=== PATIENT | female | born 1970 | race Caucasian/White ===

== ENCOUNTER 2018-01-24 15:42 | Inpatient (IN) | payer OTHER ==
[~2018-01-24] VITALS: Ht 157.5 cm; Wt 131.5 kg
[~2018-01-24 15:42] MED LIST: BELPTAB PO; CEPH500 PO; CITA20; CYCL10 PO; FENO48 PO; HYDACE5 PO; METF500C PO; OMEP20ER PO; PANT40 PO; PROM25 PO; [UNRECOGNIZED DRUG - REMARK] PO
[2018-01-24 17:01] LABS: BASOPHILS ABSOLUTE AUTO 0.04 K/mm3 (0.00-0.23); BASOPHILS PERCENT AUTO 0 % (0-2); EOSINOPHILS PERCENT AUTO 0 % (0-6); Hematocrit 43.7 % (33.0-51.0); Hemoglobin 14.8 g/dL (11.5-16.0); IMMATURE GRAN ABSOLUTE AUTO 0.12 K/mm3 (0.00-0.10); IMMATURE GRAN PERCENT AUTO 1 % (0-1); LYMPHOCYTES ABSOLUTE AUTO 1.42 K/mm3 (0.84-5.20); LYMPHOCYTES PERCENT AUTO 7 % (21-46); MONOCYTES ABSOLUTE AUTO 1.26 K/mm3 (0.16-1.47); MONOCYTES PERCENT AUTO 6 % (4-13); Mean Corpuscular HGB 29.8 pg (26.0-34.0); Mean Corpuscular HGB Conc 33.9 g/dL (31.5-36.5); Mean Corpuscular Volume 88 fL (80-100); Mean Platelet Volume 11.2 fL (9.1-12.4); NEUTROPHILS ABSOLUTE AUTO 17.14 K/mm3 (1.96-9.15); NEUTROPHILS PERCENT AUTO 86 % (41-73); Platelet Count 238 K/mm3 (150-400); RDW Standard Deviation 41.8 fL (35.1-46.3); Red Blood Cell Count 4.96 M/mm3 (3.80-5.20); White Blood Cell Count 19.98 K/mm3 (4.00-11.30)
[2018-01-24 17:24] LABS: Alanine Aminotransfer (ALT/SGP 33 U/L (12-78); Albumin, Blood 3.4 g/dL (3.4-5.0); Albumin/Globulin Ratio 0.8 (0.8-1.8); Alk Phos 80 U/L (50-136); Anion Gap 10 mmol/L (6-16); Aspartate Aminotrans (AST/SGOT 23 U/L (12-37); Bilirubin, Total 1.3 mg/dL (0.1-1.0); Blood Urea Nitrogen 9 mg/dL (8-24); Bun/Creatinine Ratio 15.3 (12.0-20.0); CO2, Blood 23 mmol/L (21-32); Calcium, Blood 9.3 mg/dL (8.5-10.1); Chloride, Blood 101 mmol/L (98-108); Creatinine, Blood 0.59 mg/dL (0.40-1.00); Globulin, Blood 4.4 g/dL (2.2-4.0); Glomerular Filtration Rate >60 (60-); Glucose, Blood 149 mg/dL (70-99); Potassium, Blood 3.6 mmol/L (3.5-5.5); Sodium, Blood 134 mmol/L (136-145); Total Protein, Blood 7.8 g/dL (6.4-8.2)
[2018-01-24 20:13] LABS: Influenza A Negative (NEGATIVE); Influenza B Negative (NEGATIVE)
[2018-01-24] MEDS ORDERED: PIOG30 PO (20:55)
[2018-01-24] MEDS ORDERED: GLIP2.5ER PO (20:55)
[2018-01-24] MEDS ORDERED: Advair Hfa 230-12 GM (20:56)
[2018-01-24] MEDS ORDERED: Novolog100 UNIT/1 SC (20:57)
[2018-01-24] MEDS ORDERED: INSULANPEN (20:58)
[2018-01-24] MEDS ORDERED: PIOG15 PO (23:27)
[2018-01-24] MEDS ORDERED: INSDET100 SC (23:28)
[2018-01-24] MEDS ORDERED: [UNRECOGNIZED DRUG - OTHER] INH (23:37)
[2018-01-24] MEDS ORDERED: TURMERIC500 M2 PO (23:38)
[2018-01-24] MEDS ORDERED: ALIVE WOMEN'S1 EAC1 PO (23:38)
[2018-01-24] MEDS ORDERED: NAPR220 PO (23:39)
[2018-01-25 04:38] LABS: BASOPHILS ABSOLUTE AUTO 0.06 K/mm3 (0.00-0.23); BASOPHILS PERCENT AUTO 0 % (0-2); EOSINOPHILS ABSOLUTE AUTO 0.01 K/mm3 (0.00-0.68); EOSINOPHILS PERCENT AUTO 0 % (0-6); Hematocrit 42.4 % (33.0-51.0); IMMATURE GRAN ABSOLUTE AUTO 0.11 K/mm3 (0.00-0.10); IMMATURE GRAN PERCENT AUTO 1 % (0-1); LYMPHOCYTES ABSOLUTE AUTO 2.55 K/mm3 (0.84-5.20); LYMPHOCYTES PERCENT AUTO 14 % (21-46); MONOCYTES ABSOLUTE AUTO 0.96 K/mm3 (0.16-1.47); MONOCYTES PERCENT AUTO 5 % (4-13); Mean Platelet Volume 11.3 fL (9.1-12.4); NEUTROPHILS PERCENT AUTO 80 % (41-73); Platelet Count 205 K/mm3 (150-400); RDW Coefficient Variation 13.2 % (11.7-14.2); RDW Standard Deviation 43.1 fL (35.1-46.3); Red Blood Cell Count 4.66 M/mm3 (3.80-5.20); White Blood Cell Count 18.29 K/mm3 (4.00-11.30)
[2018-01-25 04:44] LABS: Mean Corpuscular Volume 91 fL (80-100)
[2018-01-25 05:02] LABS: Alanine Aminotransfer (ALT/SGP 28 U/L (12-78); Albumin, Blood 2.9 g/dL (3.4-5.0); Albumin/Globulin Ratio 0.7 (0.8-1.8); Alk Phos 75 U/L (50-136); Anion Gap 8 mmol/L (6-16); Aspartate Aminotrans (AST/SGOT 11 U/L (12-37); Bilirubin, Total 0.9 mg/dL (0.1-1.0); Blood Urea Nitrogen 11 mg/dL (8-24); Bun/Creatinine Ratio 16.6 (12.0-20.0); CO2, Blood 26 mmol/L (21-32); Calcium, Blood 8.7 mg/dL (8.5-10.1); Chloride, Blood 104 mmol/L (98-108); Creatinine, Blood 0.66 mg/dL (0.40-1.00); Globulin, Blood 4.3 g/dL (2.2-4.0); Glomerular Filtration Rate >60 (60-); Glucose, Blood 118 mg/dL (70-99); Potassium, Blood 3.2 mmol/L (3.5-5.5); Sodium, Blood 138 mmol/L (136-145); Total Protein, Blood 7.2 g/dL (6.4-8.2)
[2018-01-25 05:36] LABS: Source, Urine Clean Catch
[2018-01-25 05:38] LABS: Blood, Urine 1+ (Neg); Glucose Qualitative, Urine Neg (Neg); Ketones, Urine 2+ (Neg); Leukocyte Esterase, Urine 1+ (Neg); Nitrite, Urine Neg (Neg); Protein, Urine 2+ (Neg); Urobilinogen, Urine 2+ (Normal)
[2018-01-25 05:54] LABS: Appearance, Urine Hazy (Clear); Bilirubin, Urine 1+ (Neg); Color, Urine Amber (P-Yellow)
[2018-01-25 06:03] LABS: White Blood Cells, Urine 0-2 /hpf (0-5)
[2018-01-25 06:05] LABS: Bacteria Many /hpf; Mucus Light (0-Heavy); Squamous Epithelial Cells Mod /hpf (Few)
[2018-01-25 06:09] LABS: Transitional Epithelial Cells Rare /hpf (0-Rare)
[2018-01-25 06:18] LABS: Renal Epithelial Rare /hpf (0-Rare)
[2018-01-26 05:13] LABS: BASOPHILS ABSOLUTE AUTO 0.05 K/mm3 (0.00-0.23); BASOPHILS PERCENT AUTO 1 % (0-2); EOSINOPHILS ABSOLUTE AUTO 0.18 K/mm3 (0.00-0.68); EOSINOPHILS PERCENT AUTO 2 % (0-6); Hematocrit 41.3 % (33.0-51.0); Hemoglobin 13.5 g/dL (11.5-16.0); IMMATURE GRAN ABSOLUTE AUTO 0.04 K/mm3 (0.00-0.10); IMMATURE GRAN PERCENT AUTO 0 % (0-1); LYMPHOCYTES ABSOLUTE AUTO 2.74 K/mm3 (0.84-5.20); LYMPHOCYTES PERCENT AUTO 30 % (21-46); MONOCYTES ABSOLUTE AUTO 0.53 K/mm3 (0.16-1.47); MONOCYTES PERCENT AUTO 6 % (4-13); Mean Corpuscular HGB 29.9 pg (26.0-34.0); Mean Corpuscular HGB Conc 32.7 g/dL (31.5-36.5); Mean Corpuscular Volume 92 fL (80-100); Mean Platelet Volume 11.3 fL (9.1-12.4); NEUTROPHILS ABSOLUTE AUTO 5.65 K/mm3 (1.96-9.15); NEUTROPHILS PERCENT AUTO 62 % (41-73); Platelet Count 216 K/mm3 (150-400); RDW Coefficient Variation 13.2 % (11.7-14.2); RDW Standard Deviation 44.2 fL (35.1-46.3); Red Blood Cell Count 4.51 M/mm3 (3.80-5.20); White Blood Cell Count 9.19 K/mm3 (4.00-11.30)
[2018-01-26 05:28] LABS: Anion Gap 7 mmol/L (6-16); Blood Urea Nitrogen 12 mg/dL (8-24); Bun/Creatinine Ratio 18.8 (12.0-20.0); CO2, Blood 27 mmol/L (21-32); Calcium, Blood 8.2 mg/dL (8.5-10.1); Chloride, Blood 107 mmol/L (98-108); Creatinine, Blood 0.64 mg/dL (0.40-1.00); Glomerular Filtration Rate >60 (60-); Glucose, Blood 113 mg/dL (70-99); Magnesium, Blood 1.7 mg/dL (1.6-2.4); Potassium, Blood 3.5 mmol/L (3.5-5.5); Sodium, Blood 141 mmol/L (136-145)
[2018-01-26] MEDS ORDERED: ROBITUSSIN NIG237 ML PO (09:39)
[2018-01-26] MEDS ORDERED: ACET325 PO (09:41)
[2018-01-26] MEDS ORDERED: KETO10 PO (09:42)
[2018-01-26] MEDS ORDERED: OMEPRAZOLE MAGN20 MG PO (09:43)
[2018-01-26] MEDS ORDERED: LEVO750 PO (09:43)
== END 2018-01-26 10:59 | disposition home or self-care (01) | DRG 871 ==
LOC: ER 15:42 → MEDS 19:51 → ENPENDDIS 01-26 09:00 → MEDS 01-26 10:59
PROVIDERS: Internal Medicine; Physician Assistant
DX: A41.9 Sepsis, unspecified organism (principal); J18.9 Pneumonia, unspecified organism; Z68.43 Body mass index [BMI] 50.0-59.9, adult; E66.01 Morbid (severe) obesity due to excess calories; J45.909 Unspecified asthma, uncomplicated; E11.9 Type 2 diabetes mellitus without complications; E87.6 Hypokalemia; E86.0 Dehydration; Z91.048 Other nonmedicinal substance allergy status; Z79.84 Long term (current) use of oral hypoglycemic drugs; Z79.899 Other long term (current) drug therapy
CPT/HCPCS: 36415; 71046; 80048; 80053; 81001; 82947; 83605; 83735; 85025; 87040; 87086; 87804; 93005; 93010; 94640; 94760; 96361; 96365; 96368; 96375; 99285; C9113; J0456; J0696; J1650; J1815; J1885; J3010; J7030; J7050

== ENCOUNTER → 2018-05-04 | Outpatient (CLI) | payer OTHER ==
[~2018-05-04] MED LIST changes: +ACET325 PO; +ALIVE WOMEN'S1 EAC1 PO; +Advair Hfa 230-12 GM; +GLIP2.5ER PO; +INSDET100 SC; +INSULANPEN; +KETO10 PO; +LEVO750 PO; +NAPR220 PO; +Novolog100 UNIT/1 SC; +OMEPRAZOLE MAGN20 MG PO; +PIOG15 PO; +PIOG30 PO; +ROBITUSSIN NIG237 ML PO; +TURMERIC500 M2 PO; +[UNRECOGNIZED DRUG - OTHER] INH
[2018-05-04 19:56] LABS: Alanine Aminotransfer (ALT/SGP 41 U/L (12-78); Albumin, Blood 3.7 g/dL (3.4-5.0); Alk Phos 84 U/L (50-136); Anion Gap 6 mmol/L (6-16); Aspartate Aminotrans (AST/SGOT 19 U/L (12-37); Bilirubin, Total 0.2 mg/dL (0.1-1.0); Blood Urea Nitrogen 16 mg/dL (8-24); Bun/Creatinine Ratio 21.4 (12.0-20.0); CHOL/HDL RATIO 5.6; CO2, Blood 28 mmol/L (21-32); Calcium, Blood 9.2 mg/dL (8.5-10.1); Chloride, Blood 104 mmol/L (98-108); Cholesterol 213 mg/dL (50-200); Creatinine, Blood 0.75 mg/dL (0.40-1.00); Globulin, Blood 3.7 g/dL (2.2-4.0); Glomerular Filtration Rate >60 (60-); Glucose, Blood 229 mg/dL (70-99); HDL Cholesterol 38 mg/dL (>39); LDL/HDL RATIO 2.8; Low Density Lipoprotein Chol 107 mg/dL (0-110); Potassium, Blood 4.2 mmol/L (3.5-5.5); Sodium, Blood 138 mmol/L (136-145); Total Protein, Blood 7.4 g/dL (6.4-8.2); Triglycerides 338 mg/dL (30-160); Very Low Density Lipoprot Chol 67 mg/dL (6-32)
== END | disposition home or self-care (01) ==
LOC: LAB SHORT 17:10
DX: E11.9 Type 2 diabetes mellitus without complications (principal)
CPT/HCPCS: 80053; 80061; 83036

== ENCOUNTER 2019-05-31 12:32 | Emergency (ER) | payer OTHER ==
[~2019-05-31] VITALS: Ht 160 cm; Wt 131.5 kg
[2019-05-31] MEDS ORDERED: FLUO10 PO (12:53)
[2019-05-31] MEDS ORDERED: Acetaminophen-1 EAC1 PO (14:19)
[2019-05-31] MEDS ORDERED: IBUP600 PO (14:19)
== END 2019-05-31 14:58 | disposition home or self-care (01) ==
LOC: ER 12:32
DX: S50.12XA Contusion of left forearm, initial encounter (principal); S70.01XA Contusion of right hip, initial encounter; S60.021A Contusion of right index finger without damage to nail, initial encounter; W18.30XA Fall on same level, unspecified, initial encounter; Z91.048 Other nonmedicinal substance allergy status; Z79.899 Other long term (current) drug therapy; Z79.4 Long term (current) use of insulin; E11.9 Type 2 diabetes mellitus without complications; J45.909 Unspecified asthma, uncomplicated
CPT/HCPCS: 73090; 73140; 73502; 99283-25

== ENCOUNTER 2020-11-12 19:47 | Emergency (ER) | payer OTHER ==
[~2020-11-12] VITALS: Ht 162.6 cm; Wt 108.9 kg
[~2020-11-12 19:47] MED LIST changes: +Acetaminophen-1 EAC1 PO; +FLUO10 PO; +IBUP600 PO
[2020-11-12] MEDS ORDERED: IBUP800 PO (21:45)
== END 2020-11-12 21:48 | disposition home or self-care (01) ==
LOC: ER 19:47
DX: S80.02XA Contusion of left knee, initial encounter (principal); S80.01XA Contusion of right knee, initial encounter; S00.511A Abrasion of lip, initial encounter; E11.9 Type 2 diabetes mellitus without complications; Z79.4 Long term (current) use of insulin; Z91.09 Other allergy status, other than to drugs and biological substances; Z91.012 Allergy to eggs; W10.1XXA Fall (on)(from) sidewalk curb, initial encounter
CPT/HCPCS: 73562-LT; 99283-25; A9270

== ENCOUNTER 2021-11-18 08:26 | Inpatient (IN) | payer OTHER ==
[~2021-11-18] VITALS: Ht 162.6 cm; Wt 117.9 kg
[~2021-11-18 08:26] MED LIST changes: +FAMO20 PO; +GLIP5 PO; +IBUP800 PO; +MELO7.5 PO
[2021-11-18 09:17] LABS: Source, Urine Clean Catch
[2021-11-18 09:25] LABS: Appearance, Urine Hazy (Clear); Bilirubin, Urine Neg (Neg); Blood, Urine 3+ (Neg); Color, Urine Yellow (P-Yellow); Glucose Qualitative, Urine 4+ (Neg); Ketones, Urine 3+ (Neg); Leukocyte Esterase, Urine 2+ (Neg); Nitrite, Urine Neg (Neg); Protein, Urine 2+ (Neg); Specific Gravity, Urine 1.015 (1.003-1.022); Urobilinogen, Urine NORM (Normal)
[2021-11-18 09:40] LABS: BASOPHILS ABSOLUTE AUTO 0.03 K/mm3 (0.00-0.23); BASOPHILS PERCENT AUTO 0 % (0-2); EOSINOPHILS PERCENT AUTO 0 % (0-6); Hematocrit 41.6 % (33.0-51.0); Hemoglobin 13.9 g/dL (11.5-16.0); IMMATURE GRAN ABSOLUTE AUTO 0.12 K/mm3 (0.00-0.10); IMMATURE GRAN PERCENT AUTO 1 % (0-1); LYMPHOCYTES ABSOLUTE AUTO 0.74 K/mm3 (0.84-5.20); LYMPHOCYTES PERCENT AUTO 6 % (21-46); MONOCYTES ABSOLUTE AUTO 0.85 K/mm3 (0.16-1.47); MONOCYTES PERCENT AUTO 7 % (4-13); Mean Corpuscular HGB 28.7 pg (26.0-34.0); Mean Corpuscular HGB Conc 33.4 g/dL (31.5-36.5); Mean Corpuscular Volume 86 fL (80-100); Mean Platelet Volume 10.8 fL (9.1-12.4); NEUTROPHILS ABSOLUTE AUTO 10.31 K/mm3 (1.96-9.15); NEUTROPHILS PERCENT AUTO 86 % (41-73); Platelet Count 208 K/mm3 (150-400); RDW Coefficient Variation 12.3 % (11.7-14.2); RDW Standard Deviation 38.9 fL (35.1-46.3); Red Blood Cell Count 4.84 M/mm3 (3.80-5.20); White Blood Cell Count 12.05 K/mm3 (4.00-11.30)
[2021-11-18 09:49] LABS: White Blood Cells, Urine TNTC /hpf (0-5)
[2021-11-18 09:50] LABS: Alanine Aminotransfer (ALT/SGP 29 U/L (12-78); Albumin, Blood 2.6 g/dL (3.4-5.0); Albumin/Globulin Ratio 0.5 (0.8-1.8); Alk Phos 104 U/L (50-136); Anion Gap 13 mmol/L (6-16); Aspartate Aminotrans (AST/SGOT 23 U/L (12-37); Bilirubin, Total 0.4 mg/dL (0.1-1.0); Blood Urea Nitrogen 24 mg/dL (8-24); Bun/Creatinine Ratio 29.7 (12.0-20.0); CO2, Blood 23 mmol/L (21-32); Calcium, Blood 9.2 mg/dL (8.5-10.1); Chloride, Blood 88 mmol/L (98-108); Creatinine, Blood 0.81 mg/dL (0.40-1.00); Glomerular Filtration Rate >60 (60-); Glucose, Blood 530 mg/dL (70-99); Potassium, Blood 3.9 mmol/L (3.5-5.5); Sodium, Blood 124 mmol/L (136-145); Total Protein, Blood 7.6 g/dL (6.4-8.2)
[2021-11-18 09:50] LABS: Bacteria Mod /hpf; Squamous Epithelial Cells Few /hpf (Few)
[2021-11-18 13:39] LABS: U Amphetamine Screen Not Detected; U Barbituate Screen Not Detected; U Benzodiazapine Screen Not Detected; U Buprenorphine Screen Not Detected; U Cannabinoids Screen DETECTED; U Cocaine Screen Not Detected; U Methadone Screen Not Detected; U Methamphetamine Screen Not Detected; U Opiates Screen DETECTED; U Oxycodone Screen Not Detected; U Phencyclidine Screen Not Detected; U Propoxyphene Screen Not Detected
--- NOTE | 2021-11-18 18:20 | NUR ---
PATIENT ARRIVED TO THE FLOOR TODAY FROM THE ER. PATIENT THEN TAKEN DOWN FOR CT SCAN. PATIENT HAS COMPLIANED OF ABD PAIN REQUIRING PAIN MED PER ORDERS. SEE EMAR. PATIENT REMOVED HER IV AFTER A NEW ONE WAS STARTED. IV ANTIBIOTICS CONTINUE. IVF CONTINUE. PATIENT UP AD KEVON TO THE BATHROOM. PATIENT REMAINS NPO WITH A FEW ICE CHIPS FOR COMFORT. NO SIGNS OR SYMPTOMS ACUTE DISTRESS NOTED. CALL LIGHT AND WATER IN EASY REACH. ABLE TO MAKE NEEDS AND WANTS KNOWN. WILL MONITOR.
--- NOTE | 2021-11-19 04:03 | NUR ---
SHIFT SUMMARY: PT A&O X4. FEBRILE IN BEGINNING OF SHIFT WITH TMAX OF 101. HR TACHY DURING THIS TIME. PT MEDICATED WITH TYLENOL PER EMAR. PT ALSO MEDICATED WITH 50MCG OF FENTANYL TWICE THIS SHIFT FOR C/O ABD PAIN. PT DENIES URINARY SYMPTOMS THIS MORNING AND REPORTS FEELING MUCH BETTER. 1500CC OF YELLOW CLOUDY URINE OUT. IVF+ABX INFUSING PER EMAR. SPOKE WITH DR ESCOBAR WHO REPORTS PT WILL BE HAVING HER PROCEDURE DONE OUTPATIENT. PT NOW ON ADA DIET AND TOLERATING WELL. DENIES N/V.
[2021-11-19 04:17] LABS: BASOPHILS ABSOLUTE AUTO 0.02 K/mm3 (0.00-0.23); BASOPHILS PERCENT AUTO 0 % (0-2); EOSINOPHILS PERCENT AUTO 0 % (0-6); IMMATURE GRAN ABSOLUTE AUTO 0.06 K/mm3 (0.00-0.10); IMMATURE GRAN PERCENT AUTO 1 % (0-1); LYMPHOCYTES ABSOLUTE AUTO 0.81 K/mm3 (0.84-5.20); LYMPHOCYTES PERCENT AUTO 10 % (21-46); MONOCYTES ABSOLUTE AUTO 0.85 K/mm3 (0.16-1.47); MONOCYTES PERCENT AUTO 10 % (4-13); Mean Corpuscular HGB 29.4 pg (26.0-34.0); Mean Corpuscular HGB Conc 34.2 g/dL (31.5-36.5); Mean Corpuscular Volume 86 fL (80-100); NEUTROPHILS ABSOLUTE AUTO 6.59 K/mm3 (1.96-9.15); NEUTROPHILS PERCENT AUTO 79 % (41-73); Platelet Count 173 K/mm3 (150-400); RDW Coefficient Variation 12.4 % (11.7-14.2); RDW Standard Deviation 39.7 fL (35.1-46.3); Red Blood Cell Count 4.42 M/mm3 (3.80-5.20); White Blood Cell Count 8.33 K/mm3 (4.00-11.30)
[2021-11-19 04:30] LABS: Prothrombin Time Results 10.5 Sec (9.7-11.5)
[2021-11-19 04:45] LABS: Alanine Aminotransfer (ALT/SGP 32 U/L (12-78); Albumin, Blood 2.2 g/dL (3.4-5.0); Albumin/Globulin Ratio 0.5 (0.8-1.8); Alk Phos 81 U/L (50-136); Anion Gap 9 mmol/L (6-16); Aspartate Aminotrans (AST/SGOT 26 U/L (12-37); Bilirubin, Total 0.4 mg/dL (0.1-1.0); Blood Urea Nitrogen 20 mg/dL (8-24); Bun/Creatinine Ratio 29.9 (12.0-20.0); CO2, Blood 25 mmol/L (21-32); Calcium, Blood 8.7 mg/dL (8.5-10.1); Chloride, Blood 96 mmol/L (98-108); Creatinine, Blood 0.67 mg/dL (0.40-1.00); Globulin, Blood 4.6 g/dL (2.2-4.0); Glomerular Filtration Rate >60 (60-); Glucose, Blood 297 mg/dL (70-99); Magnesium, Blood 1.7 mg/dL (1.6-2.4); Potassium, Blood 3.5 mmol/L (3.5-5.5); Sodium, Blood 130 mmol/L (136-145); Total Protein, Blood 6.8 g/dL (6.4-8.2)
--- NOTE | 2021-11-20 03:45 | NUR ---
PT ARRIVED TO FLOOR VIA EMS TRANSPORT FROM [facility]. PT ALERT, VSS, LUNGS CLEAR/DIM IN BASES, SATS >90% ON RA. PT DENIES SOB/CP/PRESSURE. BARROSO PATANT DRNG CLOUDY LIGHT PINK TINGED URINE, STAT LOCK IN PLACE. PT IS HAVING SMALL ANT SANG DRNG FROM URETHRA. PT DENIES ABD PAIN OR FEELING URGE TO VOID. DR PIERCE UPDATED ON PT'S ARRIVAL; WILL AWAIT ORDERS.
[2021-11-20 04:22] LABS: Anion Gap 10 mmol/L (6-16); Blood Urea Nitrogen 16 mg/dL (8-24); Bun/Creatinine Ratio 28.2 (12.0-20.0); CO2, Blood 26 mmol/L (21-32); Calcium, Blood 8.8 mg/dL (8.5-10.1); Chloride, Blood 94 mmol/L (98-108); Creatinine, Blood 0.57 mg/dL (0.40-1.00); Glomerular Filtration Rate >60 (60-); Glucose, Blood 245 mg/dL (70-99); Potassium, Blood 3.7 mmol/L (3.5-5.5); Sodium, Blood 130 mmol/L (136-145)
--- NOTE | 2021-11-20 04:33 | NUR ---
SHIFT SUMMARY A/OX4, IND IN ROOM. C/O MODERATE ABD PAIN, MEDICATED PER EMAR. CONTINUES TO HAVE DYSURIA AND FREQUENT URINATION. VSS, NO ACUTE CHANGES AT THIS TIME. BED IN LOWEST POSITION WITH CALL LIGHT IN REACH. WILL CONTINUE TO MONITOR AND REPORT TO ONCOMING RN.
--- NOTE | 2021-11-20 11:02 | NUR ---
Pt. was alert and sitting on the side of bed. Pt. welcomed my visit. 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 Listened empathetically. Normalized pts. experience. Encouraged self-care. Pt. displayed evidence of agreement and engagement. Explored issues of katelyn and belief. Pt. verbalized comprehension. Prayed with pt. During prayer Pt. displayed catharsis. Pt. verbalized an interest in continuing our coversation. I will return if possible and facilitate a deeper life review.
--- NOTE | 2021-11-20 17:35 | NUR ---
PATIENT CURRENTLY SITTING EDGE OF BED EATING HER MEAL. NO SIGNS OR SYMPTOMS ACUTE DISTRESS NOTED. CALL LIGHT AND WATER IN EASY REACH. ABLE TO MAKE NEEDS AND WANTS KNOWN. AAOX4. UP TO SHOWER TODAY. CONTINUES TO COMPLAIN OF LOWER ABD PAIN WITH SOME RELIEF WITH PAIN MED ORDERED. SEE EMAR. IVF STOPPED TODAY, PATIENT IS TAKING PO WELL WITH NO COMPLAINTS OF NAUSEA. LO GRIER.
--- NOTE | 2021-11-21 06:50 | NUR ---
SUMMARY NO ACUTE CHANGES TONIGHT.
--- NOTE | 2021-11-21 13:32 | NUR ---
Pt. was awake and sitting up in bed. Pt. welcomed my visit. Pt. was in tears and in spiritual distress about the loss of trust in God because of prolonged family unit crisis. Listened empathetically. Explored self-calming techniques, and offered emotional support. Reinforced helpful attitudes and practices. Pt. displayed evidence of catharsis and verbalized gratitude for my listening. Prayed with pt. and will attempt to let those in her care know that she loves them and wants to care for them.
--- NOTE | 2021-11-21 14:31 | NUR ---
Follow up. Pt. is listed as NOK for another pt. on Med. floor. Let pt. know that I saw the other individual, and communicated her care for him. Pt. verbalized gratitude.
--- NOTE | 2021-11-21 17:37 | NUR ---
PATIENT CURRENTLY LAYING IN BED WITH NO SIGNS OR SYMPTOMS ACUTE DISTRESS NOTED. CALL LIGHT AND WATER IN EASY REACH. TAKING PO WELL, NO COMPLAINTS OF NAUSEA VOICED. COMPLAINS OF LOWER ABD PAIN, MEDICATED PER ORDERS SEE EMAR. AAOX4. ABLE TO MAKE NEEDS AND WANTS KNOWN. WILL MONITOR.
--- NOTE | 2021-11-22 04:20 | NUR ---
ALERT AND ORIENTED X4. UP AD KEVON. VOIDING. TOOK PAIN MED ONCE FOR UPPER ABD PAIN.
[2021-11-22] MEDS ORDERED: OXYC5 PO (10:40)
[2021-11-22] MEDS ORDERED: CEPH500 PO (10:41)
[2021-11-22] MEDS ORDERED: VISBIOME 112.51 EACH PO (10:41)
== END 2021-11-22 12:12 | disposition home or self-care (01) | DRG 872 ==
LOC: ER 08:26 → SURS 12:36 → MEDS 12:36 → SURS 12:48
PROVIDERS: Internal Medicine; Nurse Practitioner Acute Care; Physician Assistant; ADMIT Internal Medicine
DX: A41.51 Sepsis due to Escherichia coli [E. coli] (principal); N12 Tubulo-interstitial nephritis, not specified as acute or chronic; Z68.41 Body mass index [BMI] 40.0-44.9, adult; J45.909 Unspecified asthma, uncomplicated; E66.01 Morbid (severe) obesity due to excess calories; E11.65 Type 2 diabetes mellitus with hyperglycemia; K80.20 Calculus of gallbladder without cholecystitis without obstruction; F32.A Depression, unspecified; K21.9 Gastro-esophageal reflux disease without esophagitis; Z98.51 Tubal ligation status; Z98.890 Other specified postprocedural states; Z98.891 History of uterine scar from previous surgery; Z91.012 Allergy to eggs; Z91.048 Other nonmedicinal substance allergy status; Z79.4 Long term (current) use of insulin; Z79.899 Other long term (current) drug therapy
CPT/HCPCS: 36415; 74177; 76705; 80048; 80053; 81001; 82947; 83605; 83690; 83735; 84484; 85025; 85610; 87040; 87077; 87086; 87186; 93005; 93010; 94640; 94664; 94760; 96374-59; 96375; 99285-25; A9270; J0696; J1650; J2270; J2405; J3010; J7030; J7120; Q9967

== ENCOUNTER 2022-02-24 06:24 | Day surgery (SDC) | payer OTHER ==
[~2022-02-24] VITALS: Ht 160 cm; Wt 117.3 kg
[~2022-02-24 06:24] MED LIST changes: +ALBU2.5V5 NEB; +ALBU90OI INH; +FISH OIL 1,2001 EAC7 PO; +FLAX PO; +HUMULIN R500 UNIT/2 SQ; +HYDROCODONE 5/325 PO; +INSULIN NOVOLIN SC; +METF500 PO; +OXYC5 PO; +PEPCID20 MG PO; +VISBIOME 112.51 EACH PO
--- NOTE | 2022-02-24 06:40 | NUR ---
PT STATES SHE HAS HAD A TUBAL LIGATION.
--- NOTE | 2022-02-24 07:06 | NUR ---
PT ADMITTED TO [facility]. AGREES WITH PLANNED SURGERY. LUNG SOUNDS CLEAR.
--- NOTE | 2022-02-24 09:28 | NUR ---
ASSUMED CARE, REPORT FROM TOBIAS Blackburn RN
--- NOTE | 2022-02-24 09:38 | NUR ---
Discharge instructions reviewed with patient. Patient verbalizes understanding. Copy given to patient to take home.
--- NOTE | 2022-02-24 10:01 | NUR ---
Dressing to procedure site clean, dry, intact with no visible drainage, swelling, erythema or bruising noted. Discharged via wheelchair to private car for ride home.
== END 2022-02-24 10:10 | disposition home or self-care (01) ==
LOC: ORSCMMR 06:24 → ORD 07:30 → ORSCMMR 07:30
PROVIDERS: Surgery
PROC: 0FT44ZZ Resection of Gallbladder, Percutaneous Endoscopic Approach (ICD-10-PCS; principal; 2022-02-24 07:30)
DX: K80.10 Calculus of gallbladder with chronic cholecystitis without obstruction (principal); I10 Essential (primary) hypertension; J45.909 Unspecified asthma, uncomplicated; K21.9 Gastro-esophageal reflux disease without esophagitis; E11.9 Type 2 diabetes mellitus without complications; E66.01 Morbid (severe) obesity due to excess calories; Z68.42 Body mass index [BMI] 45.0-49.9, adult; F31.9 Bipolar disorder, unspecified; Z79.899 Other long term (current) drug therapy
CPT/HCPCS: 82947; 88304; A9270; J0694; J1100; J2250; J2405; J2704; J3010; J7120

== ENCOUNTER → 2023-01-30 | Outpatient (CLI) | payer OTHER ==
[2023-01-30 13:26] LABS: BASOPHILS ABSOLUTE AUTO 0.07 K/mm3 (0.00-0.23); BASOPHILS PERCENT AUTO 1 % (0-2); EOSINOPHILS ABSOLUTE AUTO 0.32 K/mm3 (0.00-0.68); EOSINOPHILS PERCENT AUTO 3 % (0-6); Hematocrit 35.2 % (33.0-51.0); Hemoglobin 11.6 g/dL (11.5-16.0); IMMATURE GRAN PERCENT AUTO 2 % (0-1); LYMPHOCYTES ABSOLUTE AUTO 3.79 K/mm3 (0.84-5.20); LYMPHOCYTES PERCENT AUTO 29 % (21-46); MONOCYTES ABSOLUTE AUTO 0.69 K/mm3 (0.16-1.47); MONOCYTES PERCENT AUTO 5 % (4-13); Mean Corpuscular HGB 29.8 pg (26.0-34.0); Mean Corpuscular Volume 91 fL (80-100); Mean Platelet Volume 10.1 fL (9.1-12.4); NEUTROPHILS ABSOLUTE AUTO 7.95 K/mm3 (1.96-9.15); NEUTROPHILS PERCENT AUTO 61 % (41-73); Platelet Count 368 K/mm3 (150-400); RDW Coefficient Variation 13.2 % (11.7-14.2); RDW Standard Deviation 43.4 fL (35.1-46.3); Red Blood Cell Count 3.89 M/mm3 (3.80-5.20); White Blood Cell Count 13.02 K/mm3 (4.00-11.30)
[2023-01-30 14:14] LABS: Albumin, Blood 2.9 g/dL (3.4-5.0); Albumin/Globulin Ratio 0.9 (0.8-1.8); Bilirubin, Total 0.3 mg/dL (0.1-1.0); Bun/Creatinine Ratio 36.1 (12.0-20.0); Calcium, Blood 9.1 mg/dL (8.5-10.1); Creatinine, Blood 0.67 mg/dL (0.40-1.00); Globulin, Blood 3.1 g/dL (2.2-4.0); Potassium, Blood 4.2 mmol/L (3.5-5.5)
== END | disposition home or self-care (01) ==
LOC: LAB 13:19 → LAB SHORT 13:19
PROVIDERS: Physician Assistant
DX: N39.0 Urinary tract infection, site not specified (principal); R06.00 Dyspnea, unspecified; R10.9 Unspecified abdominal pain
CPT/HCPCS: 80053; 83690; 84484; 85025; 87086

== ENCOUNTER 2023-02-05 16:57 | Inpatient (IN) | payer OTHER ==
[~2023-02-05] VITALS: Ht 160 cm; Wt 118.4 kg
[~2023-02-05 16:57] MED LIST changes: -ALIVE WOMEN'S1 EAC1 PO; +MULTI-VITAMIN1 EAC2 PO
[2023-02-05 18:03] LABS: BASOPHILS ABSOLUTE AUTO 0.03 K/mm3 (0.00-0.23); BASOPHILS PERCENT AUTO 0 % (0-2); EOSINOPHILS ABSOLUTE AUTO 0.01 K/mm3 (0.00-0.68); EOSINOPHILS PERCENT AUTO 0 % (0-6); Hematocrit 37.8 % (33.0-51.0); Hemoglobin 12.2 g/dL (11.5-16.0); IMMATURE GRAN ABSOLUTE AUTO 0.34 K/mm3 (0.00-0.10); IMMATURE GRAN PERCENT AUTO 2 % (0-1); LYMPHOCYTES ABSOLUTE AUTO 1.07 K/mm3 (0.84-5.20); LYMPHOCYTES PERCENT AUTO 5 % (21-46); MONOCYTES ABSOLUTE AUTO 0.88 K/mm3 (0.16-1.47); MONOCYTES PERCENT AUTO 4 % (4-13); Mean Corpuscular HGB Conc 32.3 g/dL (31.5-36.5); Mean Corpuscular Volume 90 fL (80-100); Mean Platelet Volume 9.7 fL (9.1-12.4); NEUTROPHILS ABSOLUTE AUTO 18.73 K/mm3 (1.96-9.15); NEUTROPHILS PERCENT AUTO 89 % (41-73); Platelet Count 379 K/mm3 (150-400); RDW Coefficient Variation 13.2 % (11.7-14.2); Red Blood Cell Count 4.21 M/mm3 (3.80-5.20); White Blood Cell Count 21.06 K/mm3 (4.00-11.30)
[2023-02-05 18:31] LABS: Albumin, Blood 3.3 g/dL (3.4-5.0); Albumin/Globulin Ratio 0.9 (0.8-1.8); Bilirubin, Total 0.5 mg/dL (0.1-1.0); Bun/Creatinine Ratio 40.8 (12.0-20.0); Calcium, Blood 9.8 mg/dL (8.5-10.1); Creatinine, Blood 0.69 mg/dL (0.40-1.00); Globulin, Blood 3.8 g/dL (2.2-4.0); Potassium, Blood 5.7 mmol/L (3.5-5.5); Total Protein, Blood 7.1 g/dL (6.4-8.2)
[2023-02-05 18:48] LABS: Influenza A, PCR NEGATIVE (NEGATIVE); Influenza B, PCR NEGATIVE (NEGATIVE); Resp Syncytial Virus, PCR NEGATIVE (NEGATIVE); SARS-Cov-2 (COVID-19) PCR, MMC NEGATIVE (NEGATIVE)
[2023-02-05 19:28] LABS: Base Excess Venous -0.2 mmol/L; Bicarbonate Venous 24.3 mmol/L (24.0-30.0); PCO2 Venous 39.7 mmHg (38-42)
[2023-02-05 22:07] VITALS: BP 136/83
[2023-02-05] MEDS ORDERED: GABA100 PO (22:43)
[2023-02-05] MEDS ORDERED: DULOXETINE HCL60 M1 PO (22:43)
[2023-02-05] MEDS ORDERED: CEFU500T30 PO (22:59)
[2023-02-05] MEDS ORDERED: PRED20 PO (23:00)
[2023-02-05] MEDS ORDERED: [UNRECOGNIZED DRUG - CODE] PO (23:01)
[2023-02-05] MEDS ORDERED: AZIT250 PO (23:02)
[2023-02-05] MEDS ORDERED: CELE100 PO (23:03)
--- NOTE | 2023-02-05 23:43 | NUR ---
DURING ADMIT SKIN ASSESSMENT WITH FERRYBOAT OPERATOR CABLE. PT HAS RASH OVER ENTIRETY OF BODY AND HAD C/O OF SWALLOWING ISSUE. HOSPITALIST NOTIFIED AND INSTRUCTIONS GIVEN TO DC ABX AND CONTINUE TO MONITOR PT FOR S/S OF ANAPHALAXIS AND TRANSFER TO HIGHER LEVEL OF CARE IF CONDITION WORSENS.
[2023-02-06] VITALS (7 sets, daily range): BP systolic 128–158; BP diastolic 81–107
[2023-02-06 00:30] LABS: BASOPHILS ABSOLUTE AUTO 0.04 K/mm3 (0.00-0.23); BASOPHILS PERCENT AUTO 0 % (0-2); EOSINOPHILS ABSOLUTE AUTO 0.02 K/mm3 (0.00-0.68); EOSINOPHILS PERCENT AUTO 0 % (0-6); Hematocrit 36.9 % (33.0-51.0); Hemoglobin 11.8 g/dL (11.5-16.0); IMMATURE GRAN ABSOLUTE AUTO 0.17 K/mm3 (0.00-0.10); IMMATURE GRAN PERCENT AUTO 1 % (0-1); LYMPHOCYTES ABSOLUTE AUTO 1.88 K/mm3 (0.84-5.20); LYMPHOCYTES PERCENT AUTO 10 % (21-46); MONOCYTES ABSOLUTE AUTO 0.81 K/mm3 (0.16-1.47); MONOCYTES PERCENT AUTO 4 % (4-13); Mean Corpuscular HGB 29.2 pg (26.0-34.0); Mean Corpuscular Volume 91 fL (80-100); Mean Platelet Volume 9.6 fL (9.1-12.4); NEUTROPHILS ABSOLUTE AUTO 16.93 K/mm3 (1.96-9.15); NEUTROPHILS PERCENT AUTO 85 % (41-73); Platelet Count 344 K/mm3 (150-400); RDW Coefficient Variation 13.3 % (11.7-14.2); RDW Standard Deviation 44.1 fL (35.1-46.3); Red Blood Cell Count 4.04 M/mm3 (3.80-5.20); White Blood Cell Count 19.85 K/mm3 (4.00-11.30)
--- NOTE | 2023-02-06 05:23 | NUR ---
SHIFT SUMMARY NOC ADMIT FROM ED WITH DX OF ARF SECONDARY TO PNA. PT ON O2 2L/NC ON BIOX MAINTAINING SPO2 > 90%. PT DESATS WITH EXERTION, BUT RECOVERS QUICKLY. PT HAS RASH OVER ENTIRETY OF BODY FROM ALLERGIC REACTION TO ABX THEY WERE TAKING FOR UTI. ABX PT TAKING FOR PNA SUSPECTED CAUSE FOR WORSENING OF RASH AND HOSPITALIST D/C THEM. PT HAD C/O OF TROUBLE SWALLOWING, BUT WAS ABLE TO EAT SANDWICH WITHOUT ISSUE. PT HAD A FEW ELEVATED BP/HR AND ONE TIME DOSE OF HYDRALAZINE IV WAS GIVEN AND LOWERED BP. PT ALSO HAD C/O PAIN IN UPPER BACK FROM COUGHING DUE TO CONGESTION FROM PNA AND WAS MEDICATED PER EMAR. PT HAS ONE TIME BAG OF 1L NS INFUSING @ 125 MLS/HR FOR HYDRATION AND TO CORRECT HYPONATREMIA. PT LA AND K BOTH WNL AGAIN. PT HAD TWO ELEVATED TROPONINS THAT WERE ATRIBUTED TO DEMAND ISCHEMIA. PT ON TELE RUNNING ST @ 112 BPM. PT IS ON MEDS OBS STATUS. PT IS CURRENTLY RESTING WITH BED IN LOWEST POSITION, AND CALL LIGHT WITHIN REACH.
[2023-02-06 06:59] LABS: Albumin/Globulin Ratio 0.8 (0.8-1.8); Bilirubin, Total 0.3 mg/dL (0.1-1.0); Bun/Creatinine Ratio 40.6 (12.0-20.0); Calcium, Blood 9.4 mg/dL (8.5-10.1); Creatinine, Blood 0.69 mg/dL (0.40-1.00); Globulin, Blood 3.8 g/dL (2.2-4.0); Potassium, Blood 4.8 mmol/L (3.5-5.5); Total Protein, Blood 6.8 g/dL (6.4-8.2)
--- NOTE | 2023-02-06 18:41 | NUR ---
SHIFT SUMMARY A&O X 4. VSS. RASH REMAINS. PT STATES IT ITCHES THIS AFTERNOON, MEDICATED WITH BENADRYL PER MD ORDER. RT TREATMENTS ORDERED. ON 2 L'S O2 WITH SATS >90%. REMAINS ON CONT BI-OX. BLOOD SUGARS COVERED PER EMAR. PT CALLS FOR ASSISTANCE FOR RESTROOM USE. 1 PERSON STDBY ASSIST. BECOMES SOB WITH EXERTION. APPETITE IS GOOD.
--- NOTE | 2023-02-07 01:25 | NUR ---
SHIFT SUMMERY, PT RESTING IN BED, PT DURING THE NIGHT BECAME SOB AND REQUESTED A RT TX. PT BREATHING EASIER AFTER TX. PT ALSO MEDICATED WITH BENADRYL FOR ITCHING RASH TO BODY. PT NOW RESTING IN BED CALL LIGHT IN REACH.
[2023-02-07 02:29] VITALS: BP 166/101
[2023-02-07 04:10] VITALS: BP 159/101
[2023-02-07 05:24] LABS: BASOPHILS ABSOLUTE AUTO 0.03 K/mm3 (0.00-0.23); BASOPHILS PERCENT AUTO 0 % (0-2); EOSINOPHILS PERCENT AUTO 0 % (0-6); Hematocrit 38.8 % (33.0-51.0); Hemoglobin 12.5 g/dL (11.5-16.0); IMMATURE GRAN PERCENT AUTO 2 % (0-1); LYMPHOCYTES ABSOLUTE AUTO 1.14 K/mm3 (0.84-5.20); LYMPHOCYTES PERCENT AUTO 6 % (21-46); MONOCYTES PERCENT AUTO 2 % (4-13); Mean Corpuscular HGB 29.3 pg (26.0-34.0); Mean Corpuscular HGB Conc 32.2 g/dL (31.5-36.5); Mean Corpuscular Volume 91 fL (80-100); Mean Platelet Volume 9.8 fL (9.1-12.4); NEUTROPHILS ABSOLUTE AUTO 18.09 K/mm3 (1.96-9.15); NEUTROPHILS PERCENT AUTO 91 % (41-73); Platelet Count 369 K/mm3 (150-400); RDW Coefficient Variation 13.5 % (11.7-14.2); RDW Standard Deviation 44.9 fL (35.1-46.3); Red Blood Cell Count 4.27 M/mm3 (3.80-5.20); White Blood Cell Count 19.86 K/mm3 (4.00-11.30)
[2023-02-07 05:34] VITALS: BP 156/98
[2023-02-07 05:51] LABS: Albumin, Blood 3.1 g/dL (3.4-5.0); Albumin/Globulin Ratio 0.8 (0.8-1.8); Bilirubin, Total 0.5 mg/dL (0.1-1.0); Bun/Creatinine Ratio 41.7 (12.0-20.0); Calcium, Blood 9.3 mg/dL (8.5-10.1); Creatinine, Blood 0.84 mg/dL (0.40-1.00); Globulin, Blood 3.9 g/dL (2.2-4.0); Potassium, Blood 4.4 mmol/L (3.5-5.5)
[2023-02-07 07:49] VITALS: BP 167/102
--- NOTE | 2023-02-07 15:01 | NUR ---
PLEASANT TO CARE, MAKES NEEDS KNOWN, NO COMPLAINTS OR CONCERNS PRESENTLY, CALL FOR ASSISTANCE
[2023-02-07 15:34] VITALS: BP 161/91
--- NOTE | 2023-02-07 17:58 | NUR ---
ALERT AND ORIENTED, MAKES NEEDS KNOWN, PLEASANT AND COOPERATIVE TO CARE, S/S INSULIN INCREASED TO MED SCALE AND LANTUS INCREASED TO 15 UNTIS. BS NOW TRENDING DOWN, CALL LIGHT WITH IN REACH, NO ACUTE CHANGES
[2023-02-07 19:21] VITALS: BP 141/94
--- NOTE | 2023-02-08 03:08 | NUR ---
SHIFT SUMMERY, PT SEEMED TO BE FEELING BETTER AND HAVING EASIER TIME BREATHING. PT NOT ANXIOUS FROM BEING GIVEN ALLA UMEDROL. PT STILL HAS A RED RASH ALL OVER BODY AND NEEDING BENADRYL TO HELP WITH ITCHING. PT WAS ABLE TO SLEEP A LITTLE DURING DAYS AND SEEMED MORE REFRESHED. PT TOOK HER HS MEDS AND WENT TO SLEEP EARLY. PT SEEMS TO BE RESTING VERY WELL, PT SEEMS COMFORTABLE AND SEEMS TO BE BREATHING MORE EASILY. CALL LIGHT IN REACH.
[2023-02-08 04:37] VITALS: BP 146/96
[2023-02-08 07:35] VITALS: BP 159/93
[2023-02-08 08:25] LABS: BASOPHILS ABSOLUTE AUTO 0.02 K/mm3 (0.00-0.23); BASOPHILS PERCENT AUTO 0 % (0-2); EOSINOPHILS ABSOLUTE AUTO 0.01 K/mm3 (0.00-0.68); EOSINOPHILS PERCENT AUTO 0 % (0-6); Hematocrit 39.3 % (33.0-51.0); Hemoglobin 12.9 g/dL (11.5-16.0); IMMATURE GRAN ABSOLUTE AUTO 0.29 K/mm3 (0.00-0.10); IMMATURE GRAN PERCENT AUTO 2 % (0-1); LYMPHOCYTES ABSOLUTE AUTO 1.26 K/mm3 (0.84-5.20); LYMPHOCYTES PERCENT AUTO 7 % (21-46); MONOCYTES ABSOLUTE AUTO 0.57 K/mm3 (0.16-1.47); MONOCYTES PERCENT AUTO 3 % (4-13); Mean Corpuscular HGB 29.3 pg (26.0-34.0); Mean Corpuscular HGB Conc 32.8 g/dL (31.5-36.5); Mean Corpuscular Volume 89 fL (80-100); Mean Platelet Volume 9.9 fL (9.1-12.4); NEUTROPHILS ABSOLUTE AUTO 16.46 K/mm3 (1.96-9.15); NEUTROPHILS PERCENT AUTO 88 % (41-73); Platelet Count 347 K/mm3 (150-400); RDW Coefficient Variation 13.2 % (11.7-14.2); RDW Standard Deviation 43.1 fL (35.1-46.3); Red Blood Cell Count 4.41 M/mm3 (3.80-5.20); White Blood Cell Count 18.61 K/mm3 (4.00-11.30)
[2023-02-08 08:45] LABS: Albumin, Blood 3.1 g/dL (3.4-5.0); Albumin/Globulin Ratio 0.8 (0.8-1.8); Bilirubin, Total 0.5 mg/dL (0.1-1.0); Bun/Creatinine Ratio 48.1 (12.0-20.0); Calcium, Blood 9.5 mg/dL (8.5-10.1); Creatinine, Blood 0.71 mg/dL (0.40-1.00); Globulin, Blood 3.9 g/dL (2.2-4.0); Potassium, Blood 4.4 mmol/L (3.5-5.5)
[2023-02-08 15:46] VITALS: BP 148/104
--- NOTE | 2023-02-08 16:45 | NUR ---
SHIFT SUMMARY PT AOX4 AND NO ACUTE CHANGES THIS SHIFT. CBG'S ARE TRENDING DOWN TO THE UPPER 300'S, PROVIDER WAS NOTIFIED FOR THE AM AND NOON GLUCOSE READING AND EXTRA INSULIN WAS ORDERED. SHE HAS HAD NO COMPLAINTS THIS SHIFT, THE BENADRYL APPEARS TO BE HELPING THE RASH/ITCHING THAT IS ALL OVER HER BODY. CALL LIGHT IS WITHIN REACH, BED IN THE LOWEST POSITION. WILL REPORT TO ONCOMING NURSE.
[2023-02-08 19:21] VITALS: BP 151/93
[2023-02-09 03:10] VITALS: BP 137/93
--- NOTE | 2023-02-09 04:57 | NUR ---
SHIFT SANDRAY, PT SLEEPING IN BED WITH OUT O2 AND HAD AMBULATED IN THE JONAS WITHOUT O2 AND DID WELL WITH OUT SOB. PT CALLED DURRING NIGHT AND C/O ALARM WAKEING HER. PLACED O2 ON PT, PT SNORRING A LITLLE WHEN ASEEP. CALL LIGHT IN REACH .
[2023-02-09 07:41] VITALS: BP 164/97
[2023-02-09 10:20] LABS: Albumin, Blood 2.9 g/dL (3.4-5.0); Anion Gap 4 mmol/L (6-16); Blood Urea Nitrogen 31 mg/dL (8-24); Bun/Creatinine Ratio 41.4 (12.0-20.0); CO2, Blood 26 mmol/L (21-32); Chloride, Blood 99 mmol/L (98-108); Creatinine, Blood 0.75 mg/dL (0.40-1.00); Glomerular Filtration Rate 95 (60-); Glucose, Blood 315 mg/dL (70-99); Magnesium, Blood 1.6 mg/dL (1.6-2.4); Phosphorus, Blood 2.1 mg/dL (2.5-4.9); Sodium, Blood 129 mmol/L (136-145)
[2023-02-09 14:35] VITALS: BP 151/79
--- NOTE | 2023-02-09 18:19 | NUR ---
SHIFT SUMMARY NO ACUTE CHANGES THIS SHIFT. PT C/O PAIN IN THE R AC IV, A NEW IV WAS PUT IN HER LEFT WRIST AREA. IT FLUSHES WELL AND REMAINED PATENT THROUGH AN IV TREATMENT. PT HAS HAD NO COMPLAINTS OF P/N/V/CP/SOB. SHE CALLS WELL AND MAKES HER NEEDS KNOWN. WILL REPORT TO ONCOMING NURSE.
[2023-02-09 19:24] VITALS: BP 140/85
[2023-02-10 05:05] VITALS: BP 159/97
[2023-02-10 05:53] LABS: BASOPHILS ABSOLUTE AUTO 0.04 K/mm3 (0.00-0.23); BASOPHILS PERCENT AUTO 0 % (0-2); EOSINOPHILS ABSOLUTE AUTO 0.13 K/mm3 (0.00-0.68); EOSINOPHILS PERCENT AUTO 1 % (0-6); Hematocrit 40.7 % (33.0-51.0); Hemoglobin 12.9 g/dL (11.5-16.0); IMMATURE GRAN ABSOLUTE AUTO 0.38 K/mm3 (0.00-0.10); IMMATURE GRAN PERCENT AUTO 3 % (0-1); LYMPHOCYTES ABSOLUTE AUTO 4.66 K/mm3 (0.84-5.20); LYMPHOCYTES PERCENT AUTO 31 % (21-46); MONOCYTES ABSOLUTE AUTO 0.78 K/mm3 (0.16-1.47); MONOCYTES PERCENT AUTO 5 % (4-13); Mean Corpuscular HGB 28.6 pg (26.0-34.0); Mean Corpuscular HGB Conc 31.7 g/dL (31.5-36.5); Mean Corpuscular Volume 90 fL (80-100); Mean Platelet Volume 9.7 fL (9.1-12.4); NEUTROPHILS ABSOLUTE AUTO 8.98 K/mm3 (1.96-9.15); NEUTROPHILS PERCENT AUTO 60 % (41-73); Platelet Count 337 K/mm3 (150-400); RDW Coefficient Variation 13.1 % (11.7-14.2); RDW Standard Deviation 43.1 fL (35.1-46.3); Red Blood Cell Count 4.51 M/mm3 (3.80-5.20); White Blood Cell Count 14.97 K/mm3 (4.00-11.30)
[2023-02-10 06:15] LABS: Albumin, Blood 2.9 g/dL (3.4-5.0); Anion Gap 0 mmol/L (6-16); Blood Urea Nitrogen 28 mg/dL (8-24); CO2, Blood 32 mmol/L (21-32); Chloride, Blood 101 mmol/L (98-108); Creatinine, Blood 0.76 mg/dL (0.40-1.00); Glomerular Filtration Rate 94 (60-); Glucose, Blood 264 mg/dL (70-99); Magnesium, Blood 1.8 mg/dL (1.6-2.4); Phosphorus, Blood 2.9 mg/dL (2.5-4.9); Sodium, Blood 133 mmol/L (136-145)
--- NOTE | 2023-02-10 06:26 | NUR ---
SHIFT SUMMARY: NO ACUTE CHANGES NOTED DURING THIS SHIFT. PT IS A&OX4. INDEPENDENT TO BSC TO VOID. REPORTS SOB IS IMPROVING. ON RA WHEN AWAKE, PLACE ON 2 LPM WHEN SLEEPING TO KEEP O2 SATS > 92%. HR IS AR/ST. DENIES CHEST PAIN. CALL LIGHT IN REACH.
[2023-02-10 07:18] VITALS: BP 146/90
[2023-02-10] MEDS ORDERED: VISBIOME 112.51 EACH PO (13:04)
[2023-02-10] MEDS ORDERED: PRED20 PO (13:04)
[2023-02-10] MEDS ORDERED: BASAGLAR K100 UNIT/1 SC (13:05)
[2023-02-10] MEDS ORDERED: AMOCLA875 PO (13:05)
--- NOTE | 2023-02-10 15:01 | NUR ---
DISCHARGE SUMMARY ALERT AND ORIENTED. INDEPENDENT IN ROOM. TOLERATING ADA DIET AND LIQUIDS. RESP EFFORT EVEN AND UNLABORED ON ROOM AIR. DISCHARGE ORDERS GIVEN BY DR GUERRERO. DISCHARGE EDUCATION GIVEN ON NEW RXS, FOLLOW UP WITH PCP. IV DC'D BY SAWYER CORK SLABS. PATIENT LEFT UNIT AT 1330 VIA WHEELCHAIR FOR HOME WITH FAMILY MEMBER.
== END 2023-02-10 13:49 | disposition home or self-care (01) | DRG 871 ==
LOC: ER 16:57 → MEDS 16:58 → ENPENDDIS 02-10 10:00 → MEDS 02-10 13:49
PROVIDERS: Emergency Medicine; Family Medicine; Internal Medicine; Physician Assistant; ADMIT Student in an Organized Health Care Education/Training Program
DX: A41.9 Sepsis, unspecified organism (principal); I21.A1 Myocardial infarction type 2; J18.9 Pneumonia, unspecified organism; J96.01 Acute respiratory failure with hypoxia; E87.1 Hypo-osmolality and hyponatremia; E87.20 Acidosis, unspecified; J45.901 Unspecified asthma with (acute) exacerbation; R65.20 Severe sepsis without septic shock; F32.A Depression, unspecified; K21.9 Gastro-esophageal reflux disease without esophagitis; E87.5 Hyperkalemia; L53.8 Other specified erythematous conditions; E87.6 Hypokalemia; E86.0 Dehydration; E11.9 Type 2 diabetes mellitus without complications; L27.0 Generalized skin eruption due to drugs and medicaments taken internally; T36.8X5A Adverse effect of other systemic antibiotics, initial encounter; Z20.822 Contact with and (suspected) exposure to COVID-19; Z91.048 Other nonmedicinal substance allergy status; Z88.8 Allergy status to other drugs, medicaments and biological substances; Z91.012 Allergy to eggs; Z88.2 Allergy status to sulfonamides; Z79.899 Other long term (current) drug therapy; Z79.51 Long term (current) use of inhaled steroids; Z79.891 Long term (current) use of opiate analgesic; Z79.4 Long term (current) use of insulin; Z98.890 Other specified postprocedural states; Z98.51 Tubal ligation status
CPT/HCPCS: 0241U; 36415; 71046; 80053; 80069; 82803; 82947; 83605; 83735; 83880; 84132; 84145; 84484; 85025; 85379; 87040; 93005; 93010; 94640; 94664; 94760; 94762; 96365; 96372; 96375; 99285-25; A9270; G0378; J0360; J0696; J1650; J1815; J2930; J3475; J7030; J7060; J7512

== ENCOUNTER 2023-03-21 19:56 | Emergency (ER) | payer OTHER ==
[~2023-03-21] VITALS: Ht 160 cm; Wt 90.7 kg
[~2023-03-21 19:56] MED LIST changes: +AMOCLA875 PO; +AZIT250 PO; +BASAGLAR K100 UNIT/1 SC; +CEFU500T30 PO; +CELE100 PO; +DULOXETINE HCL60 M1 PO; +FURO20 PO; +GABA100 PO; +INSULIN LI100 UNIT/5 SC; +LINE600 PO; +LISI5 PO; +OXAYDO5 M1 PO; +PRED20 PO; +PROZAC40 MG PO; +[UNRECOGNIZED DRUG - CODE] PO
[2023-03-21 21:30] VITALS: BP 175/92
== END 2023-03-21 21:47 | disposition home or self-care (01) ==
LOC: ER 19:56
DX: Z46.89 Encounter for fitting and adjustment of other specified devices (principal); Z88.8 Allergy status to other drugs, medicaments and biological substances; Z91.012 Allergy to eggs; Z91.048 Other nonmedicinal substance allergy status; Z79.899 Other long term (current) drug therapy; Z79.4 Long term (current) use of insulin; E11.9 Type 2 diabetes mellitus without complications; J45.909 Unspecified asthma, uncomplicated
CPT/HCPCS: 99282

== ENCOUNTER 2023-03-25 03:44 | Day surgery (SDC) | payer OTHER | END 2023-03-25 23:08 | disposition home or self-care (01) | LOC: WOUND | DX: M79.3 Panniculitis, unspecified (principal); S31.105S Unspecified open wound of abdominal wall, periumbilic region without penetration into peritoneal cavity, sequela; X58.XXXS Exposure to other specified factors, sequela; E11.622 Type 2 diabetes mellitus with other skin ulcer; A49.02 Methicillin resistant Staphylococcus aureus infection, unspecified site; J45.909 Unspecified asthma, uncomplicated; Z88.1 Allergy status to other antibiotic agents; Z87.891 Personal history of nicotine dependence | CPT/HCPCS: A9270; G0463 ==

== ENCOUNTER → 2023-04-03 | Day surgery (SDC) | payer OTHER ==
[~2023-04-03] MED LIST changes: +CEFD300 PO
== END ==
LOC: WOUND 03:12
DX: S31.119D Laceration without foreign body of abdominal wall, unspecified quadrant without penetration into peritoneal cavity, subsequent encounter (principal); E11.622 Type 2 diabetes mellitus with other skin ulcer; M79.3 Panniculitis, unspecified; B95.62 Methicillin resistant Staphylococcus aureus infection as the cause of diseases classified elsewhere; X58.XXXD Exposure to other specified factors, subsequent encounter
CPT/HCPCS: G0463

== ENCOUNTER 2023-05-01 01:39 | Day surgery (SDC) | payer OTHER ==
[~2023-05-01 01:39] MED LIST changes: +ASPI325 PO; +Acetaminophen650 M1 PO; +MICONAZOLE NITR85 GM TOP
== END 2023-05-01 22:44 | disposition home or self-care (01) ==
LOC: WOUND 01:39
DX: S31.113D Laceration without foreign body of abdominal wall, right lower quadrant without penetration into peritoneal cavity, subsequent encounter (principal); B95.62 Methicillin resistant Staphylococcus aureus infection as the cause of diseases classified elsewhere; E11.622 Type 2 diabetes mellitus with other skin ulcer; M79.3 Panniculitis, unspecified; X58.XXXD Exposure to other specified factors, subsequent encounter
CPT/HCPCS: A9270; G0463

== ENCOUNTER 2023-05-22 03:17 | Day surgery (SDC) | payer OTHER | END 2023-05-22 22:50 | disposition home or self-care (01) | LOC: WOUND 03:17 | DX: M79.3 Panniculitis, unspecified (principal); S31.105S Unspecified open wound of abdominal wall, periumbilic region without penetration into peritoneal cavity, sequela; E11.622 Type 2 diabetes mellitus with other skin ulcer; A49.02 Methicillin resistant Staphylococcus aureus infection, unspecified site | CPT/HCPCS: G0463 ==

== ENCOUNTER 2023-06-18 00:14 | Day surgery (SDC) | payer OTHER | END 2023-06-18 22:52 | disposition home or self-care (01) | LOC: WOUND 00:14 | DX: M79.3 Panniculitis, unspecified (principal); E11.622 Type 2 diabetes mellitus with other skin ulcer; B95.62 Methicillin resistant Staphylococcus aureus infection as the cause of diseases classified elsewhere; S31.105S Unspecified open wound of abdominal wall, periumbilic region without penetration into peritoneal cavity, sequela | CPT/HCPCS: G0463 ==

== ENCOUNTER 2023-06-25 03:49 | Day surgery (SDC) | payer OTHER | END 2023-06-25 22:44 | disposition home or self-care (01) | LOC: WOUND 03:49 | DX: S31.11 Laceration without foreign body of abdominal wall without penetration into peritoneal cavity (principal); X58.XXXS Exposure to other specified factors, sequela; E11.622 Type 2 diabetes mellitus with other skin ulcer; M79.3 Panniculitis, unspecified; B95.62 Methicillin resistant Staphylococcus aureus infection as the cause of diseases classified elsewhere | CPT/HCPCS: A9270; G0463 ==

== ENCOUNTER 2024-02-25 12:09 | Day surgery (SDC) | payer OTHER ==
[~2024-02-25] VITALS: Ht 160 cm; Wt 121.7 kg
[~2024-02-25 12:09] MED LIST changes: +Lactated Ringer's 1,000 ML IV ONE; +Lidocaine HCl 2% 10 ML SDA ONE
[2024-02-25] MEDS ORDERED: CeFAZolin Sodium 3,000 MG in NS 100 ML IV SCH (13:00)
[2024-02-25] MEDS ORDERED: ALOGLIPTIN25 M7 PO (13:06)
[2024-02-25] MEDS ORDERED: FLUOXETINE HCL60 MG PO (13:06)
[2024-02-25] MEDS ORDERED: CELE100 PO (13:07)
[2024-02-25] MEDS ORDERED: Lactated Ringer's 1,000 ML IV ONE (13:15)
--- NOTE | 2024-02-25 13:20 | NUR ---
02/25/24 1320 Kimberly Murphy PT SPORTS WRITER BED. CALL LIGHT WITHIN REACH. BED IN LOWEST POISITION. NO QUESTIONS OR CONCERNS
[2024-02-25] MEDS ORDERED: FentaNYL Citrate 50 MCG/ML 2 ML Injection ONE (13:43)
[2024-02-25] MEDS ORDERED: Dexamethasone Sod Phos 10 MG/ML 1ML VIAL ONE (13:43)
[2024-02-25] MEDS ORDERED: propofoL 20 ML IV ONE (13:43)
[2024-02-25] MEDS ORDERED: Ondansetron HCl 2 MG / ML 2ML Vial ONE (13:43)
[2024-02-25] MEDS ORDERED: Lidocaine HCl 2% 10 ML SDA ONE (14:03)
[2024-02-25 14:52] VITALS: BP 108/73
== END 2024-02-25 15:34 | disposition home or self-care (01) ==
LOC: ORSCSDS 12:09
PROVIDERS: Orthopaedic Surgery
PROC: 0LN70ZZ Release Right Hand Tendon, Open Approach (ICD-10-PCS; principal; 2024-02-25 13:30)
DX: M65.321 Trigger finger, right index finger (principal); M65.331 Trigger finger, right middle finger; M65.341 Trigger finger, right ring finger; I10 Essential (primary) hypertension; J45.909 Unspecified asthma, uncomplicated; F32.A Depression, unspecified; E11.9 Type 2 diabetes mellitus without complications; E66.01 Morbid (severe) obesity due to excess calories; Z68.42 Body mass index [BMI] 45.0-49.9, adult; Z87.891 Personal history of nicotine dependence; Z79.82 Long term (current) use of aspirin; Z79.4 Long term (current) use of insulin; Z79.84 Long term (current) use of oral hypoglycemic drugs; Z79.899 Other long term (current) drug therapy
CPT/HCPCS: 82947; J0690; J1100; J2001; J2405; J2704; J3010; J7120

== ENCOUNTER → 2024-11-07 | Outpatient (CLI) | payer OTHER ==
[~2024-11-07] MED LIST changes: +ALOGLIPTIN25 M7 PO; +FLUOXETINE HCL60 MG PO; -Lactated Ringer's 1,000 ML IV ONE; -Lidocaine HCl 2% 10 ML SDA ONE
[2024-11-07 16:33] LABS: BASOPHILS ABSOLUTE AUTO 0.05 K/mm3 (0.00-0.23); BASOPHILS PERCENT AUTO 0 % (0-2); EOSINOPHILS ABSOLUTE AUTO 0.15 K/mm3 (0.00-0.68); EOSINOPHILS PERCENT AUTO 1 % (0-6); Hematocrit 38.9 % (33.0-51.0); Hemoglobin 12.5 g/dL (11.5-16.0); IMMATURE GRAN ABSOLUTE AUTO 0.03 K/mm3 (0.00-0.10); IMMATURE GRAN PERCENT AUTO 0 % (0-1); LYMPHOCYTES ABSOLUTE AUTO 2.59 K/mm3 (0.84-5.20); LYMPHOCYTES PERCENT AUTO 22 % (21-46); MONOCYTES ABSOLUTE AUTO 0.56 K/mm3 (0.16-1.47); MONOCYTES PERCENT AUTO 5 % (4-13); Mean Corpuscular HGB 28.8 pg (26.0-34.0); Mean Corpuscular HGB Conc 32.1 g/dL (31.5-36.5); Mean Corpuscular Volume 90 fL (80-100); Mean Platelet Volume 10.6 fL (9.1-12.4); NEUTROPHILS ABSOLUTE AUTO 8.56 K/mm3 (1.96-9.15); NEUTROPHILS PERCENT AUTO 72 % (41-73); Platelet Count 312 K/mm3 (150-400); RDW Coefficient Variation 13.5 % (11.7-14.2); Red Blood Cell Count 4.34 M/mm3 (3.80-5.20); White Blood Cell Count 11.94 K/mm3 (4.00-11.30)
== END ==
LOC: LAB SHORT 16:30 → LAB 16:30
PROVIDERS: Physician Assistant
DX: R10.9 Unspecified abdominal pain (principal)
CPT/HCPCS: 85025

== ENCOUNTER → 2025-08-30 | Outpatient (CLI) | payer OTHER ==
[2025-09-05 15:14] LABS: 3-OH-COTININE, URN, QUANT 1617 ng/mL; ANABASINE, URN, QUANT 6 ng/mL; COTININE, URN, QUANT 398 ng/mL; NICOTINE, URN, QUANT 601 ng/mL
== END ==
LOC: LAB SHORT 14:15 → LAB 14:15
PROVIDERS: Family Medicine
DX: Z51.81 Encounter for therapeutic drug level monitoring (principal); Z79.899 Other long term (current) drug therapy
CPT/HCPCS: G0480